=== PATIENT | male | born 1985 | race Caucasian/White ===

== ENCOUNTER → 2023-06-17 | Outpatient (CLI) | payer BC ==
--- NOTE | 2023-06-17 18:35 | US ---
EXAMINATION TYPE: US liver DATE OF EXAM: 06/17/2023 COMPARISON: NONE CLINICAL INDICATION: Male, 38 years old with history of R74.01 ELEVATION OF LEVELS OF LIVER TRANSAMIN ASE L; elevated LFTS TECHNIQUE: Multiple sonographic images of the right upper quadrant are obtained. FINDINGS: EXAM MEASUREMENTS: Liver Length: 15 cm Gallbladder Wall: .2 cm CBD: .4 cm Right Kidney: 11.9 x 5.6 x 5.1 cm Pancreas: Obscured by bowel gas Liver: Increased attenuation Gallbladder: No stones seen Evidence for sonographic Smith's sign: No CBD: wnl Right Kidney: No hydronephrosis or masses seen IMPRESSION: 1. Limited evaluation of pancreas due to bowel gas. 2. Mild increased echogenicity of the liver possibly indicating mild steatosis.. No hepatomegaly or f ocal liver mass.
== END | disposition home or self-care (01) ==
LOC: RADUSWWP 08:53
PROVIDERS: ATTEND Internal Medicine
DX: R14.3 Flatulence (principal); R74.01 Elevation of levels of liver transaminase levels
CPT/HCPCS: 76705